=== PATIENT | female | born 1970 | race American Indian/Alaskan Native ===

== ENCOUNTER 2017-11-22 13:11 | Outpatient (CLI) | payer BC ==
--- NOTE | 2017-11-22 16:15 | Mammography Report ---
BILATERAL DIGITAL SCREENING MAMMOGRAM with CAD: 11/22/17 13:11:00 CLINICAL: Routine screening.History of bilateral reduction mammoplasty. COMPARISON:01/26/16 FINDINGS: The breasts are almost entirely fatty.Stable extensive left retroareolar and left upper benign fat necrosis with multiple oil cysts and benign calcifications. No mass, architectural distortion or suspicious calcifications. IMPRESSION: No mammographic evidence of malignancy. BI-RADS CATEGORY: 2 -- Benign RECOMMENDATION: Routine mammographic screening in one year. COMMENT: Patient follow-up letters are generated by our [employer] application.
== END 2017-11-22 13:12 | disposition home or self-care (01) ==
LOC: SPVWC 13:11
PROVIDERS: ATTEND Obstetrics & Gynecology
DX: Z12.31 Encounter for screening mammogram for malignant neoplasm of breast (principal)
CPT/HCPCS: 77067

== ENCOUNTER 2019-01-30 15:16 | Outpatient (CLI) | payer BC ==
--- NOTE | 2019-02-04 14:16 | Mammography Report ---
DIGITAL SCREENING MAMMOGRAM WITH CAD, 01/30/2019 INDICATION: Routine screening mammography. History of bilateral reduction mammoplasty. TECHNIQUE: Digital bilateral 2D mammography was obtained in the craniocaudal and mediolateral obliq ue projections. This examination was interpreted with the benefit of Computer-Aided Detection analysi s. COMPARISON: 11/22/2017 FINDINGS: Breast Density: The breasts are almost entirely fatty. There is no evidence of dominant mass, suspicious calcifications or architectural distortion in eithe r breast. Extensive bilateral left predominantly retroareolar benign fat necrosis with oil cysts and calcifications. IMPRESSION: No mammographic evidence of malignancy. Follow up recommendation: Routine yearly BI-RADS Category 2: Benign. A "normal" or negative report should not discourage follow up or biopsy of a clinically significant f inding. A written summary of these findings will be mailed to the patient. The patient will be entered into a mammography reporting system which will generate a reminder letter for the patient's next appointmen t at the appropriate interval. The [employer] recommends yearly mammograms starting at age 40 and continuing as l catarino as a woman is in good health. Breast MRI is recommended for women with an approximate 20-25% or greater lifetime risk of breast cancer, including women with a strong family history of breast or ova dacia cancer or who have been treated for Hodgkin's disease. Signer Name: Edgar Goel MD Signed: 02/04/2019 2:12 PM Workstation Name: [id number]
== END 2019-01-30 15:17 | disposition home or self-care (01) ==
LOC: SPVWC 15:16
PROVIDERS: ATTEND General Practice
DX: Z12.31 Encounter for screening mammogram for malignant neoplasm of breast (principal)
CPT/HCPCS: 77067

== ENCOUNTER 2020-02-18 14:42 | Outpatient (CLI) | payer BC | END 2020-02-18 14:43 | disposition home or self-care (01) | LOC: SPVWC 14:42 | PROVIDERS: ATTEND General Practice | DX: Z12.31 Encounter for screening mammogram for malignant neoplasm of breast (principal) | CPT/HCPCS: 77067 ==

== ENCOUNTER 2021-09-28 11:31 | Outpatient (CLI) | payer BC ==
--- NOTE | 2021-09-28 14:30 | XRay Report ---
BILATERAL HIP 3 VIEW(S) INDICATION / CLINICAL INFORMATION: BILATERAL HIP PAIN COMPARISON: None available. FINDINGS: BONES / JOINT(S): No acute fracture or subluxation. Moderately advanced left hip degenerative arthros is. Minimal right hip joint space narrowing. SOFT TISSUES: No significant abnormality. ADDITIONAL FINDINGS: None. IMPRESSION: 1. No acute findings. Moderate left hip degenerative arthrosis. Signer Name: Kathy Mckinley MD Signed: 09/28/2021 2:26 PM Workstation Name: [id number]
== END 2021-09-28 11:32 | disposition home or self-care (01) ==
LOC: XRAY 11:31
DX: M16.0 Bilateral primary osteoarthritis of hip (principal)
CPT/HCPCS: 73521